=== PATIENT | male | born 1945 | race Caucasian/White ===

== ENCOUNTER 2016-11-04 06:12 | Day surgery (SDC) | payer MEDICARE, OTHER ==
[~2016-11-04] VITALS: Ht 177.8 cm; Wt 94.0 kg
[~2016-11-04 06:12] MED LIST: ASPI81CH37 CHEW; GLUC1CAP16; META0.52; MULT1TAB85 PO; VENTAER INH; VYTO10TA27 PO; [UNRECOGNIZED DRUG - CODE] PO
[2016-11-04] MEDS ORDERED: SODIUM CHLORID 0.9% 500 ML INJ 500 ML IV SCH (06:30)
[2016-11-04] MEDS ORDERED: LORazepam 1 MG TAB SL SCH (06:30)
[2016-11-04] MEDS ORDERED: LACTATED RINGER'S 1000 ML IV PRN (06:45)
[2016-11-04] MEDS ORDERED: INSULIN HUMAN REGULAR 1,000 UNITS/10 ML VIAL SQ PRN (06:45)
[2016-11-04] MEDS ORDERED: METOPROLOL TARTRATE 25 MG TAB PO PRN (06:45)
[2016-11-04] MEDS ORDERED: POVIDONE IODINE 5% (ANTISEPSIS KIT) 4 APPLICATIONS EACH NARE PRN (06:45)
[2016-11-04] MEDS ORDERED: SODIUM CHLORID 0.9% 500 ML IV PRN (06:45)
[2016-11-04] MEDS ORDERED: CHLORHEXIDINE GLUCONATE 2 % 1 PACK (2 CLOTHS) TOPICAL PRN (06:45)
[2016-11-04] MEDS ORDERED: fentaNYL CITRATE 250 MCG/5 ML AMP ONE (06:55)
[2016-11-04] MEDS ORDERED: HEPARIN-D5W INJ 250 ML ONE (06:55)
[2016-11-04] MEDS ORDERED: MIDAZOLAM HCL 2 MG/2 ML VIAL ONE (06:55)
[2016-11-04] MEDS ORDERED: ISOPROTERENOL HCL 1 MG/5 ML AMP ONE (06:55)
[2016-11-04] MEDS ORDERED: CETI10CA3 PO (06:56)
[2016-11-04] MEDS ORDERED: FAMOTIDINE 20 MG/2 ML VIAL ONE (06:56)
[2016-11-04] MEDS ORDERED: APIX5TAB PO (06:56)
[2016-11-04] MEDS ORDERED: ATEN25TA PO (06:56)
[2016-11-04 07:04] VITALS: BP 131/95; PULSE 86; RESP 16; O2SAT 97
[2016-11-04 07:30] LABS: AUTOMATED NEUTROPHIL # 5.6 TH/MM3 (1.8-7.7); BASOPHIL # 0.2 TH/MM3 (0-0.2); BASOPHIL % 1.9 % (0.0-2.0); EOSINOPHIL # 0.4 TH/MM3 (0-0.4); EOSINOPHIL % 4.3 % (0.0-4.0); HEMATOCRIT 42.3 % (39.0-51.0); HEMO FLAGS DIFF FINAL; LYMPH % 26.3 % (9.0-44.0); LYMPHOCYTE # 2.5 TH/MM3 (1.0-4.8); MEAN CELL VOLUME 93.1 FL (80.0-100.0); MEAN CORPUSCULAR HEMOGLOBIN 29.9 PG (27.0-34.0); MEAN CORPUSCULAR HGB CONC 32.1 % (32.0-36.0); MONO % 8.9 % (0.0-8.0); NEUT % 58.6 % (16.0-70.0); PLATELET COUNT 177 TH/MM3 (150-450); RED BLOOD COUNT 4.55 MIL/MM3 (4.50-5.90); RED CELL DISTRIBUTION WIDTH 13.8 % (11.6-17.2); WHITE BLOOD COUNT 9.6 TH/MM3 (4.0-11.0)
[2016-11-04 07:35] LABS: APTT (PATIENT) 26.1 SEC (24.3-30.1); INTERNATIONAL NORMALIZED RATIO 1.1 RATIO; PROTHROMBIN TIME - PATIENT 11.8 SEC (9.8-11.6)
[2016-11-04 07:50] LABS: BICARBONATE 27.4 MEQ/L (21.0-32.0); POTASSIUM 4.1 MEQ/L (3.5-5.1)
--- NOTE | 2016-11-04 16:49 | EKG ---
Date Performed: 11/04/2016 Time Performed: 07:23:44 PTAGE: 71 years EKG: Probable normal Sinus rhythm Nonspecific ST and T wave abnormalities Low QRS voltages in precordial leads Abnormal ECG PREVIOUS TRACING : 05/05/2011 12.59 Compared to prior tracing no significant change DOCTOR: Mike Diana Interpretating Date/Time 11/04/2016 16:48:00
--- NOTE | 2016-11-09 13:47 | CATHPROC ---
[facility] HIS Report Study Information Study Number Admission Scheduled Start Study Start 1026-17 11/09/2016 11/09/2016 Nov 09 2016 9:22AM Referring Institution Admit Source Facility Department 1 Other [facility] - Director Clinical Research Physician and Clinical Staff Initial Catalina Olivo Formulation Technician Kishan Bhatia,RT(R) Formulation Technician Carly Webber,[employer] INVESTIGATOR TECH2 Other Anesthesia, APPOINTMENT MANAGER Recorder Elidia Ray,RN Recorder Agata Kirkland,BSRN Scrub Junie Phillips,RT(R) TECH2 Procedures Performed Procedure Location (Site) Vessel Name Ablation Procedure ICE CATHETER INSERT RA Atruim RF Ablation LT. ATRIUM LT. ATRIUM RF Ablation RA Atruim Equipment Time Government Affairs Researcher Description Size Mfg Part Number Used/Scraped NEEDLE, TRANSSEPTAL NRG 98 10:46 [facility] [id number] Used C1 BIOSENSE MURPHY CATHETER, CELSIUS DS, 8MM, F [id number] 13:04 FR 7 Used INC. TYPE QUAD *[id number] [employer]/ EP 10:46 KIT, TRANSDUCER / AFIB [id number] Used PACER COVER, TRANSDUCER CABLE 10:46 [employer] 612-113 Used ACUNAV 10:46 CORDIS/PACER SHEATH, FR10 BARBARA 11CM FR 10 [id number] Used 10:46 CORDIS/PACER SHEATH, FR9 BARBARA 11CM FR 9 [id number] Used [id number] 10:46 [employer] INDUSTRIES PACK, CCL CUSTOM * Used *[id number] 10:46 [employer] PACER DYER, LIMB * 2530 Used [id number] 10:46 [employer] MEDICAL SHEATH, FR4.5 PRELUDE 11CM FR 4.5 Used [id number] 10:46 NAMIC TUBING, HIGH PRESSURE 48" 48" Used *[id number] 10:46 NAMIC TUBING, HIGH PRESSURE 48" 48" Used *[id number] 10:46 [employer] BLANKET,WARM AIR CCL * Used *[id number]- CATHETER, TACTICATH ABLAT BUNDLE 10:46 [employer] Used 65 BUNDLE *[id number]- BUNDLE [id number] CATHETER, FR7 OPTIMA SPIRAL 10:46 [employer] FR7 *[id number]- Used BUNDLE BUNDLE [id number] 10:46 [employer] CATHETER, JSN, QUAD BUNDLE FR 5 *[id number]- Used BUNDLE [id number] 10:46 [employer] CATHETER, JSN, QUAD BUNDLE FR 5 *[id number]- Used BUNDLE 10:46 [facility] ELECTRODE KIT, EMILY X SURFACE * [id number] Used [id number] SET, COOL POINT TUBING 10:46 [employer] *[id number]- Used BUNDLE BUNDLE 10:46 [employer] SHEATH, EPS, FR6 FAST CATH FR 6 [id number] Used 10:46 [facility] SHEATH, EPS, FR7 FAST CATH FR 7 [id number] Used 10:46 [facility] SHEATH, EPS, FR8 FAST CATH FR 8 [id number] Used SHEATH, FR8.5 STEERABLE SM 10:46 [facility] 71CM [id number] Used 71CM BUNDLE CATHETER, ACUNAV FR10 ICE [id number] 12:31 DARCIE FR 10 Used (DARCIE) *[id number] [facility] PAD, ELECTROSURGICAL 10:46 * [id number] Used SURGICAL GROUNDING (BLUE) History: Allergies Allergy Reaction No Known Allergies History: Risk Factors Dyslipidemia Yes Chronic Lung Disease Labs Hgb (g/dl) Hct (%) RBC (MIL/MM3) WBC (l/cumm) Platelets (thousands) 12.00-18.00 37.00-55.00 4.80-6.20 4.80-10.80 140.00-450.00 14.0 42 4.5 9.1 178 Glucose (mg/dl) BUN (mg/dl) Creatinine (mg/dl) BUN:Creatinine (1:x) 60.00-110.00 8.00-20.00 0.10-9.00 10.00-20.00 116 26 1.3 20 Na (meq/l) K (meq/l) 138.00-146.00 3.80-5.10 138 4.5 INR (PTT:PT) 0.50-2.00 1.1 Medication Medication Total Dose (Bolus/Oral) Medication Total Dosage/Unit 1% XYLOCAINE 40 mL HEPARIN 86942 units PROTAMINE 50 mg Medications (Bolus/Oral) Medication Time Given Dosage/Unit Administered By Reason 1% XYLOCAINE 11/09/2016 11:32:43 AM 20 mL Michael, Hanscy 20 mL 1% XYLOCAINE given in lab by Catalina Rodriguez in Left Groin via Subcutaneous. Ordered by Josh Rodriguez 1% XYLOCAINE 11/09/2016 11:36:24 AM 20 mL Catalina Rodriguez 20 mL 1% XYLOCAINE given in lab by Catalina Rodriguez in Right Groin via Subcutaneous. Ordered by Johana Rodriguez. HEPARIN 11/09/2016 11:44:45 AM 93109 units Anesthesia, APPOINTMENT MANAGER 75099 units HEPARIN given in lab by Anesthesia, APPOINTMENT MANAGER in Right Antecubital via Peripheral IV. Ordered by Catalina Rodriguez. HEPARIN 11/09/2016 11:59:16 AM 2000 units Anesthesia, APPOINTMENT MANAGER As per physicians v erbal order 2000 units HEPARIN given in lab by Anesthesia, APPOINTMENT MANAGER via Peripheral IV. Ordered by Catalina Rodriguez. Reas on: As per physicians verbal order. HEPARIN 11/09/2016 12:24:42 PM 3000 units Anesthesia, APPOINTMENT MANAGER As per physicians v erbal order 3000 units HEPARIN given in lab by Anesthesia, APPOINTMENT MANAGER via Peripheral IV. Ordered by Catalina Rodriguez. Reas on: As per physicians verbal order. HEPARIN 11/09/2016 12:40:55 PM 2000 units Anesthesia, APPOINTMENT MANAGER As per physicians v erbal order 2000 units HEPARIN given in lab by Anesthesia, APPOINTMENT MANAGER via Peripheral IV. Ordered by Catalina Rodriguez. Reas on: As per physicians verbal order. PROTAMINE 11/09/2016 1:39:53 PM 40 mg Anesthesia, APPOINTMENT MANAGER As per physicians fanny bal order 40 mg PROTAMINE given in lab by Anesthesia, APPOINTMENT MANAGER via Peripheral IV. Ordered by Catalina Rodriguez. Reason: As per physicians verbal order. PROTAMINE 11/09/2016 1:51:26 PM 10 mg Anesthesia, APPOINTMENT MANAGER As per physicians fanny bal order 10 mg PROTAMINE given in lab by Anesthesia, APPOINTMENT MANAGER via Peripheral IV. Ordered by Hanscy. Michael Reason: As per physicians verbal order. Medication (Drip) Medication Time Given Dosage/Unit Concentration/Unit Diluent (ml) Solution HEPARIN DRIP 11/09/2016 11:59:35 AM 1000 units/hr 22929 units 250 D5W 1000 units/hr HEPARIN DRIP given in lab by Anesthesia, APPOINTMENT MANAGER via Peripheral IV. Pump/Drip Flow = 10 ml /hr using [place] [address] units in 250 ml. Ordered by Catalina Rodriguez. Reason: As per physicians verbal order. ISUPREL 11/09/2016 1:16:57 PM 20 mcg/min 1 mg 250 NaCl .9 20 mcg/min ISUPREL given in lab by Anesthesia, APPOINTMENT MANAGER via Peripheral IV. Pump/Drip Flow = 300 ml/hr usi ng NaCl .9 with a concentration of 1 mg in 250 ml. Ordered by Catalina Rodriguez. Reason: As per physicians verbal order. LEVAQUIN 11/09/2016 10:56:00 AM 100 mL/hr 500 100 NaCl .9 100 mL/hr LEVAQUIN given in lab by Anesthesia, APPOINTMENT MANAGER via Peripheral IV. Pump/Drip Flow = 0 ml/hr using NaCl .9 with a concentration of 500 in 100 ml. Ordered by Catalina Rodriguez. Reason: As per physicians verbal order. for correa insertion Initial Case Assessment Cardiovascular HR Rhythm NIBP Chest Pain 78 sr 139/97 0 Edema Present Skin color Skin None Normal Warm Dry Circulatory - Right Pulses Dorsalis Pedis 1 Scale (0,1,2,3,4,d) Circulatory - Left Pulses Dorsalis Pedis 1 Scale (0,1,2,3,4,d) Circulatory - Lower Extremities Color Lower Right Color Lower Left Normal Normal Neurological State Oriented to time-place- Alert Moves all extremities person Respiration - General Respiration Rate SpO2 (%) (B/min) 20 98 Final Case Assessment Cardiovascular HR Rhythm NIBP Chest Pain 97 sr 120/74 0 Edema Present Skin color Skin None Normal Warm Dry Circulatory - Right Pulses Dorsalis Pedis 1 Scale (0,1,2,3,4,d) Circulatory - Left Pulses Dorsalis Pedis 1 Scale (0,1,2,3,4,d) Circulatory - Lower Extremities Color Lower Right Color Lower Left Normal Normal Neurological State Lethargic Moves all extremities Respiration - General Respiration Rate SpO2 (%) O2 (lpm) (B/min) 16 95 6 Chronological Log Time Study Chronological Log 10:16:46 Patient arrived via Bed. 10:16:47 Patient Name, D.O.B, / Armband Verified By R.N. 10:16:48 Consent signed by the physician and the patient and verified by the Director Clinical Research staff. 10:16:49 Pre-op and post- op instructions given; patient acknowledges understanding of instructions. Verbal Stimulation=~VERBAL~ Physical Stimulation=~PHYSICAL~ Airway=~AIRWAY~ Respiration=~RESPIR ATION~ 10:16:50 TOTAL=~TOTAL~. (0=absent, 1=limited, 2=present) 10:16:53 Patient has been NPO for More than 6Hrs. 10:16:54 Skin Breakdown- none per pt 10:16:55 Patient Warmer Placed on the Table. 10:16:56 Disposable Defibrillator Pads Placed On Patient. 10:17:00 Jose D Prominences Protected 10:17:01 A # 20 IV was noted in the Forearm (left). Grade = 0 0.9ns kvo 10:17:02 A # 20 IV was noted in the Forearm (right). Grade = 0 0.9ns kvo 10:19:00 History and physical on the chart or being dictated. Assessment: Initial Case, HR=78 BPM, Rhythm=sr, NRZH=081/97 mmhg, Chest Pain=0, Edema=None, Col or=Normal, Skin = Warm, Dry Right Pulses: Garfield Ped=1 Left Pulses: Garfield Ped=1 10:25:50 Lower Right Extremities: Color=Normal Lower Left Extremities: Color=Normal Neurological: State=Alert, Ox3, ASHBY Respiration: Resp=20 B/min, SpO2=98 % 10:39:51 Table restraints applied according to hospital policy 10:45:17 Anesthesia at bedside. Assumes care of patient. 10:49:32 Anesthesia present for intubation. 10:50:00 14 fr correa inserted w/o difficulty. Clear yellow urine obtained. 100 mL/hr LEVAQUIN given in lab by Anesthesia, APPOINTMENT MANAGER via Peripheral IV. Pump/Drip Flow = 0 ml/hr using NaCl .9 with 10:56:00 a concentration of 500 in 100 ml. Ordered by Catalina Rodriguez. Reason: As per physicians verbal or michael. for correa insertion 11:00:49 Bilateral groins prepped with 2% chlorhexidine, and with a 3 min. waiting time. 11:03:49 Reference ECG taken 11:05:00 paged 11:14:05 arrived. 11:25:18 MM out, SR in. 11:26:32 Immediate Presedation assesment performed by physician. Time Out. Correct patient, procedure, procedure equipment, site and side verified with physicia n present. Time 11:28:21 concurred by MD, individual staff and APPOINTMENT MANAGER. Time Out #2 - Consents verified, patient in correct position, all results are labled and displa yed, safety precautions 11:28:29 taken, antibiotics administered. Time out concurred by MD, individual staff and APPOINTMENT MANAGER in procedu re 11:28:32 Case Start 11:29:19 MARY completed at bedside by Dr. Rodriguez 11:32:43 20 mL 1% XYLOCAINE given in lab by Catalina Rodriguez in Left Groin via Subcutaneous. Ordered by Catalina Rodriguez. 11:33:40 Vascular access was obtained in the Fem Vein (left). 11:33:50 Vascular access was obtained in the Fem Vein (left). 11:33:51 Vascular access was obtained in the Fem Vein (left). 11:34:03 Vascular access was obtained in the Fem Art (left). 11:34:33 A SHEATH, FR4.5 PRELUDE 11CM FR 4.5 was advanced into the Fem Art (right) using the Percuta neous technique. 11:35:03 A SHEATH, EPS, FR6 FAST CATH FR 6 was advanced into the Fem Vein (left) using the Percutane ous technique. 11:35:21 A SHEATH, EPS, FR7 FAST CATH FR 7 was advanced into the Fem Vein (left) using the Percutane ous technique. 11:35:39 A SHEATH, FR10 BARBARA 11CM FR 10 was advanced into the Fem Vein (left) using the Percutaneo us technique. 11:36:24 20 mL 1% XYLOCAINE given in lab by Catalina Rodriguez in Right Groin via Subcutaneous. Ordered b Catalina Love. 11:36:45 Vascular access was obtained in the Fem Vein (right). 11:36:54 A SHEATH, EPS, FR8 FAST CATH FR 8 was advanced into the Fem Vein (right) using the Percutan eous technique. A CATHETER, JSN, QUAD BUNDLE FR 5 was advanced vis Fem Vein (left) and placed in the CS. Placem ent was visually 11:37:26 confirmed under fluoroscopy. A CATHETER, JSN, QUAD BUNDLE FR 5 was advanced vis Fem Vein (left) and placed in the HIS. Place ment was 11:37:52 visually confirmed under fluoroscopy. 11:40:30 CATHETER, ACUNAV FR10 ICE (DARCIE) FR 10 Was Postioned. A SHEATH, FR8.5 STEERABLE SM 71CM BUNDLE 71CM was exchanged in the Fem Vein (right). This was n ecessary in 11:41:54 order to accomodate a larger catheter. A CATHETER, FR7 OPTIMA SPIRAL BUNDLE FR7 was advanced to the right atrium and passed through th e septal wall 11:42:00 to the left atrium. 76608 units HEPARIN given in lab by Anesthesia, APPOINTMENT MANAGER in Right Antecubital via Peripheral IV. Or dered by Michael, 11:44:45 Catalina. 11:48:33 Mapping in progress. 11:54:18 Activated Clotting Time Drawn 11:55:37 SR out, MM in. 11:58:31 ACT (Normal Range 90-180) = 306 2000 units HEPARIN given in lab by Anesthesia, APPOINTMENT MANAGER via Peripheral IV. Ordered by Catalina Rodriguez . Reason: As per 11:59:16 physicians verbal order. 1000 units/hr HEPARIN DRIP given in lab by Anesthesia, APPOINTMENT MANAGER via Peripheral IV. Pump/Drip Flow = 10 ml/hr using 11:59:35 D5[place] [address] units in 250 ml. Ordered by Catalina Rodriguez. Reason: As per malathi piedra verbal order. 12:06:24 Mapping complete. Catheter was removed A CATHETER, TACTICATH ABLAT 65 BUNDLE was advanced vis Fem Vein (right) and placed in the LA. P lacement was 12:06:42 visually confirmed under fluoroscopy. 12:07:14 RF Ablation of the LT. ATRIUM with a CATHETER, TACTICATH ABLAT 65 BUNDLE. 12:10:59 Activated Clotting Time Drawn 12:22:58 ACT (Normal Range 90-180) = 316 3000 units HEPARIN given in lab by Anesthesia, APPOINTMENT MANAGER via Peripheral IV. Ordered by Catalina Rodriguez . Reason: As per 12:24:42 physicians verbal order. 12:33:43 Activated Clotting Time Drawn 12:40:41 ACT (Normal Range 90-180) = 340 2000 units HEPARIN given in lab by Anesthesia, APPOINTMENT MANAGER via Peripheral IV. Ordered by Catalina Rodriguez . Reason: As per 12:40:55 physicians verbal order. 12:49:00 Activated Clotting Time Drawn 12:56:53 ACT (Normal Range 90-180) = 344 13:00:29 Ablation Catheter was removed A CATHETER, AYAH DS, 8MM, F TYPE QUAD FR 7 was advanced vis Fem Ve[facility] (right[facility] 13:04:26 Placement was visually confirmed under fluoroscopy. 13:05:42 RF Ablation of the RA with a CATHETER, AYAH DS, 8MM, F TYPE QUAD FR 7. 20 mcg/min ISUPREL given in lab by Anesthesia, APPOINTMENT MANAGER via Peripheral IV. Pump/Drip Flow = 300 ml/ hr using NaCl .9 13:16:57 with a concentration of 1 mg in 250 ml. Ordered by Catalina Rodriguez. Reason: As per physicians fanny bal order. 13:26:46 isuprel discontinued 13:29:17 Catheters removed without difficulty. A SHEATH, FR9 BARBARA 11CM FR 9 was exchanged in the Fem Vein (right). This was necessary in ord er to achieve 13:29:40 vascular hemostasis. 13:30:58 PACU called. Spoke to Junie 13:31:00 Bedside Report will be given. 13:31:05 Ablation procedure performed: AFIB. AF/AFlttr Abl 13:31:30 EP Procedure was performed. 13:31:55 Sheath(s) left in place, sutured, 0.9ns kvo connected and will be removed in Holding Area 13:34:34 Sterile dressings applied to sites 40 mg PROTAMINE given in lab by Anesthesia, APPOINTMENT MANAGER via Peripheral IV. Ordered by Catalina Rodriguez. R thiago: As per 13:39:53 physicians verbal order. 13:45:17 No case complications noted. 13:45:18 Cine recording checked. Assessment: Final Case, HR=97 BPM, Rhythm=sr, KFXE=468/74 mmhg, Chest Pain=0, Edema=None, Aurora r=Normal, Skin = Warm, Dry Right Pulses: Garfield Ped=1 Left Pulses: Garfield Ped=1 13:45:27 Lower Right Extremities: Color=Normal Lower Left Extremities: Color=Normal Neurological: State=Lethargic, ASHBY Respiration: Resp=16 B/min, SpO2=95 %, O2=6 lpm 13:46:30 Defibrillator and ground pads removed. Skin intact. 13:47:58 Activated Clotting Time Drawn 13:50:40 Case End 13:51:19 ACT (Normal Range 90-180) = 198 10 mg PROTAMINE given in lab by Anesthesia, APPOINTMENT MANAGER via Peripheral IV. Ordered by Catalina Rodriguez. Reason: As per 13:51:26 physicians verbal order. 13:55:33 Patient moved to stretcher End Study - Contrast Media Used In Study Contrast Total Opened (mL) Total Used (mL) Total Wasted (mL) Unspecified 0 0 0 End Study - Maximum Contrast Load Max Contrast Load (mL) 365.0 End Study - Radiation Exposure Fluoro Time (minutes) 5.6 End Study - Patient Disposition Complications Transferred To Interventional Outcome No Telemetry Bed successful
== END 2016-11-04 12:20 | disposition home or self-care (01) ==
LOC: HDOC 06:12 → HDIC 06:13 → HDOC 12:20
PROVIDERS: ATTEND Internal Medicine Interventional Cardiology
DX: Z53.8 Procedure and treatment not carried out for other reasons (principal); R00.2 Palpitations; E78.5 Hyperlipidemia, unspecified; E66.9 Obesity, unspecified; Z68.29 Body mass index [BMI] 29.0-29.9, adult; Z87.891 Personal history of nicotine dependence; I25.10 Atherosclerotic heart disease of native coronary artery without angina pectoris; Z79.01 Long term (current) use of anticoagulants
CPT/HCPCS: 80048; 85025; 85610; 85730; 86850; 86900; 86901; 93005; G0463; J1644; J2250; J3010; 99211

== ENCOUNTER 2016-11-09 07:16 | Day surgery (SDC) | payer MEDICARE, OTHER ==
[~2016-11-09] VITALS: Ht 177.8 cm; Wt 95.0 kg
[2016-11-09] VITALS (8 sets, daily range): BP systolic 111–122; BP diastolic 77–90; PULSE 75–87; RESP 16–20; TEMP 97.3–98.4; O2SAT 94–97
[~2016-11-09 07:16] MED LIST changes: +APIX5TAB PO; -ASPI81CH37 CHEW; +ATEN25TA PO; +CETI10CA3 PO; -META0.52
[2016-11-09] MEDS ORDERED: POVIDONE IODINE 5% (ANTISEPSIS KIT) 4 APPLICATIONS EACH NARE PRN (08:00)
[2016-11-09] MEDS ORDERED: LACTATED RINGER'S 1000 ML IV PRN (08:00)
[2016-11-09] MEDS ORDERED: SODIUM CHLORID 0.9% 500 ML IV PRN (08:00)
[2016-11-09] MEDS ORDERED: LORazepam 1 MG TAB SL SCH (08:00)
[2016-11-09] MEDS ORDERED: METOPROLOL TARTRATE 25 MG TAB PO PRN (08:00)
[2016-11-09] MEDS ORDERED: SODIUM CHLORID 0.9% 500 ML INJ 500 ML IV SCH (08:00)
[2016-11-09] MEDS ORDERED: CHLORHEXIDINE GLUCONATE 2 % 1 PACK (2 CLOTHS) TOPICAL PRN (08:00)
[2016-11-09] MEDS ORDERED: INSULIN HUMAN REGULAR 1,000 UNITS/10 ML VIAL SQ PRN (08:00)
[2016-11-09] MEDS ORDERED: VITA500T4 PO (08:03)
[2016-11-09] MEDS ORDERED: MULT1TAB46 (08:03)
[2016-11-09] MEDS ORDERED: TRIFLEX (08:03)
[2016-11-09] MEDS ORDERED: FLUT50SP EACH NARE (08:03)
[2016-11-09 08:06] LABS: AUTOMATED NEUTROPHIL # 4.9 TH/MM3 (1.8-7.7); BASOPHIL # 0.2 TH/MM3 (0-0.2); EOSINOPHIL # 0.4 TH/MM3 (0-0.4); EOSINOPHIL % 4.7 % (0.0-4.0); HEMATOCRIT 42.3 % (39.0-51.0); HEMO FLAGS DIFF FINAL; LYMPH % 30.7 % (9.0-44.0); LYMPHOCYTE # 2.8 TH/MM3 (1.0-4.8); MEAN CORPUSCULAR HEMOGLOBIN 30.1 PG (27.0-34.0); MEAN CORPUSCULAR HGB CONC 33.1 % (32.0-36.0); MONO % 8.8 % (0.0-8.0); NEUT % 53.8 % (16.0-70.0); PLATELET COUNT 178 TH/MM3 (150-450); RED BLOOD COUNT 4.65 MIL/MM3 (4.50-5.90); RED CELL DISTRIBUTION WIDTH 14.1 % (11.6-17.2); WHITE BLOOD COUNT 9.1 TH/MM3 (4.0-11.0)
[2016-11-09 08:15] LABS: APTT (PATIENT) 26.1 SEC (24.3-30.1); INTERNATIONAL NORMALIZED RATIO 1.1 RATIO
[2016-11-09 08:33] LABS: BICARBONATE 25.7 MEQ/L (21.0-32.0); POTASSIUM 4.5 MEQ/L (3.5-5.1)
[2016-11-09] MEDS ORDERED: SODIUM CHLORID 0.9% 500 ML BAG IV ONE (10:16)
[2016-11-09] MEDS ORDERED: PROPOFOL 200 MG/20 ML AMP IV ONE (10:16)
[2016-11-09] MEDS ORDERED: HEPARIN-NS/PF INJ 500 ML ONE (10:34)
[2016-11-09] MEDS ORDERED: LEVOFLOXACIN 500 MG PREMIX INJ 100 ML IV ONE (10:36)
[2016-11-09] MEDS ORDERED: HEPARIN-D5W INJ 250 ML ONE (10:49)
[2016-11-09] MEDS ORDERED: MIDAZOLAM HCL 2 MG/2 ML VIAL ONE (10:49)
[2016-11-09] MEDS ORDERED: HEPARIN SODIUM - IV 10,000 UNITS/10 ML VIAL ONE (10:49)
[2016-11-09] MEDS ORDERED: ISOPROTERENOL HCL 1 MG/5 ML AMP ONE (10:50)
[2016-11-09] MEDS ORDERED: PROTAMINE SULFATE 50 MG/5 ML VIAL ONE (10:50)
[2016-11-09] MEDS ORDERED: DO NOT ADM ANY ANTICOAGULANT DRUGS PRN (14:00)
[2016-11-09] MEDS ORDERED: LIDOCAINE HCL 1% 50 ML VIAL INFIL PRN (14:15)
[2016-11-09] MEDS ORDERED: ATROPINE SULFATE 1 MG/ML VIAL IV PRN (14:15)
[2016-11-09] MEDS ORDERED: SODIUM CHLOR 0.9% 250 ML INJ 250 ML IV PRN (14:15)
[2016-11-09] MEDS ORDERED: METOCLOPRAMIDE HCL 10 MG/2 ML VIAL IV PRN (14:15)
[2016-11-09] MEDS ORDERED: oxyCODONE/ACETAMINOPHEN 5 MG/325 MG TAB PO PRN ×2 (14:15)
[2016-11-09] MEDS ORDERED: ONDANSETRON HCL 4 MG/2 ML VIAL IV PRN (14:15)
[2016-11-09] MEDS ORDERED: LORazepam 2 MG/ML VIAL IV PRN (14:15)
--- NOTE | 2016-11-09 14:15 | PD.CARD ---
Atrial Fibrillation Ablation PROCEDURE DATE: November 09, 2016 PROCEDURES PERFORMED: 1. Electrophysiology study on Isuprel infusion 2. CS cannulation 3. 3-D mapping 4. Transseptal approach 5. Right and left heart catheterization 6. Intracardiac echo 7. Radiofrequency ablation of atrial fibrillation 8. Pulmonary vein isolation 9. Posterior wall ablation 10. Mitral line creation 11. Left atrial tachycardia ablation 12. Anterior wall ablation 13. Atrial flutter ablation. INDICATIONS FOR THE PROCEDURE Mr. Coley is a 71-year-old male with atrial fibrillation, atrial flutter referred for electrophysiology study and ablation. The patient is symptomatic and on anticoagulation. The risks, the nature and the benefits of the procedure were clearly stated to him. The risks include pneumothorax, cardiac perforation, stroke, need for open heart surgery and even . The patient understood and agreed to proceed. DESCRIPTION OF THE PROCEDURE IN DETAIL After written informed consent was obtained prior to esophageal echocardiogram, the patient was kept on the table where he was prepped and draped in the usual sterile fashion. Conscious sedation was initiated and maintained throughout the procedure by the anesthesiologist. Once sedation was verified, the right and left inguinal areas were anesthetized with 2% Xylocaine. Using modified Seldinger technique, the left femoral vein was cannulated on three occasions, three guidewires were advanced. Over the wire a 6, 7 and a 10-Indonesian Hemaquet were advanced. Then the left femoral artery was cannulated on one occasion, one guidewire was advanced. Over the wire a 4-Indonesian Hemaquet was advanced. Then the right femoral vein was cannulated on one occasion, one guidewire was advanced. Over the wire a 8-Indonesian Hemaquet was advanced. Then under fluoroscopic guidance through the 6 and 7-Indonesian Hemaquet, two 5-Indonesian Rita curved quadripolar electrophysiology catheters were advanced and placed around the His as well as coronary sinus. Basic interval was measured. The patient was in atrial fibrillation. Through the 10-Indonesian Hemaquet, a Cordis Goins AcuNav intracardiac echo catheter was advanced and placed at the right atrium. Multiple view was obtained. There is no pericardial effusion. Pulmonary vein was seen, atrial septal was visualized. Then the 8-Indonesian Hemaquet in the right femoral vein was exchanged for Agilis transseptal sheath that was placed all the way to the superior vena cava. Through the sheath a Jacque needle was advanced, then the sheath, the dilator and the needle were progressed until foci engaged. Once engaged, the needle was advanced. RF was delivered for 2 seconds. I was able to cross into the left atrium. Once the needle crossed, the dilator was advanced. Once the dilator crossed, the sheath was advanced. Once the sheath crossed, the dilator and the needle were removed. At this point I did flood the system and fluid movement was seen in the left atrium the indicates the sheath is in good position. The patient already received 10,000 units of heparin. The goal is to keep an ACT around 350 during ablation. Then through the sheath a [facility] 20 pulse circumferential catheter was advanced. Using [employer] endocardial solution mapping system, a two-dimensional configuration of the left atrium was obtained. Points were taken at the left superior and inferior veins, right superior and inferior veins, mitral valve, and appendages. Then through the sheath a [facility]. [facility] TactiCath 65cm 3.5mm irrigated tipped mapping and radiofrequency ablation catheter was advanced. Esophageal probe was placed temperature monitoring during ablation. When it increased to 0.5 degrees Celsius above baseline, I moved to a different area of the atrium. First I did isolate the left superior and inferior vein. I did make a big mohegan around the veins. Posterior was ablated. A mitral line was isolated. Patient was in left atrial tachycardia. Then the right superior and inferior veins were isolated. I did remap the atrium. Early activation of the tachyarrhythmia was near the right superior vein. It was ablated. Activation changed. I did remap again. This time activation coming from the right atrium. I decided to map the right atrium. Flutter line was created using an 8 mm catheter from Cordis Goins. During the isolation of the coronary sinus, patient converted into sinus rhythm. is There is no significant signal in the atrium. At that point I did advance the circumferential catheter again into the vein. There was no signal into the vein , pacing from the vein showed no conduction to the atrium. Isuprel infusion was initiated at 20 mcg for over 10 minutes. No tachyarrhythmia was induced, post Isuprel no tachyarrhythmia was induced. At that point the procedure was complete. All catheters were removed, atrial septal sheath was exchanged for 9- Indonesian Hemaquet, intracardiac echo showed no pericardial effusion. There is still good flow in the pulmonary vein. The patient is going to be transferred to the recovery room. No incident report. The patient tolerated the procedure. Blood loss was minimal. FINDINGS 1. Electrocardiogram: At baseline the patient was in atrial fibrillation, post procedure the patient was in sinus rhythm. 2. Basic interval: Base cycle length was around 540. Post ablation she was around 980 milliseconds. AH at 80 and HV at 52 milliseconds. 3. Tachyarrhythmia: Atrial fibrillation was mapped and ablated. Left atrial tachycardia, atrial flutter was ablated. The ablation was successful. CONCLUSION Successful electrophysiology study, mapping, radiofrequency ablation of atrial fibrillation, left atrial tachycardia, atrial flutter, pulmonary vein isolation , posterior ablation, mitral line creation. COMMENTS AND RECOMMENDATIONS The patient is going to be transferred to the telemetry unit. Will be observed and when stable can be discharged home. Catalina Rodriguez MD November 09, 2016 14:15
[2016-11-09] MEDS ORDERED: BACITRACIN OINT 0.9 GM PKT TOP ONE (15:00)
[2016-11-09] MEDS ORDERED: PILL SPLITTER OTHER PRN (15:15)
[2016-11-09] MEDS ORDERED: ALBUTEROL SULFATE 90 MCG/ACT HFA 18 GM INHALER INH PRN (15:15)
[2016-11-09] MEDS ORDERED: PRAVASTATIN SOD 20 MG TAB PO SCH (21:00)
[2016-11-09] MEDS ORDERED: NON-FORMULARY DRUG (Ezetimibe-Simvastatin (Vytorin) 1 TAB) PO SCH (21:00)
[2016-11-09] MEDS ORDERED: EZETIMIBE 10 MG TAB PO SCH (21:00)
[2016-11-09] MEDS: APIXABAN 5 MG TABLET PO SCH (21:12)
[2016-11-10] VITALS (9 sets, daily range): BP systolic 112–117; BP diastolic 78–79; PULSE 74–86; RESP 16–18; TEMP 97.6; O2SAT 93–97
[2016-11-10 06:43] LABS: APTT (PATIENT) 25.9 SEC (24.3-30.1); INTERNATIONAL NORMALIZED RATIO 1.1 RATIO; PROTHROMBIN TIME - PATIENT 12.3 SEC (9.8-11.6)
[2016-11-10] MEDS ORDERED: METO25TA6 PO (08:14)
--- NOTE | 2016-11-10 08:19 | PD.CARD.PN ---
Subjective Subjective Remarks Feels okay. Objective Medications Current Medications Medications (Trade) Dose Ordered Sig/Jj Route Start Time Stop Time Status Last Admin Sodium Chloride 500 ml @ 30 mls/hr [id number] IV 11/09/16 08:00 11/09/16 08:00 Lactated Ringer's 1,000 ml @ 30 mls/hr Q24H PRN IV 11/09/16 08:00 11/12/16 07:59 (NS 500 ml Inj) 500 ml @ 30 mls/hr [id number] PRN IV 11/09/16 08:00 11/12/16 07:59 Miscellaneous Information ALL NURSING DEPARTME... UNSCH PRN .XX 11/09/16 14:00 11/10/16 13:59 (Percocet 5-325 Mg) 1 tab Q4H PRN PO 11/09/16 14:15 (Percocet 5-325 Mg) 2 tab Q4H PRN PO 11/09/16 14:15 (Ativan Inj) 0.5 mg UNSCH PRN IV 11/09/16 14:15 11/10/16 14:14 (Atropine Inj) 0.5 mg UNSCH PRN IV 11/09/16 14:15 (Reglan Inj) 10 mg Q4H PRN IV 11/09/16 14:15 (Zofran Inj) 4 mg Q4H PRN IV 11/09/16 14:15 (Xylocaine 1% Inj (50 ml)) 10 ml UNSCH PRN INFIL 11/09/16 14:15 11/10/16 14:14 (Ventolin Hfa Inh) 1 puff Q4H PRN INH 11/09/16 15:15 (Eliquis) 5 mg BID PO 11/09/16 21:00 11/09/16 21:12 (Vitamin B12) 500 mcg DAILY PO 11/10/16 09:00 (ZyrTEC) 10 mg DAILY PO 11/10/16 09:00 (Pill Splitter) 1 ea UNSCH PRN OTHER 11/09/16 15:15 (Zetia) 10 mg HS PO 11/09/16 21:00 11/09/16 21:12 (Pravachol) 20 mg HS PO 11/09/16 21:00 11/09/16 21:12 Vital Signs / I&O Vital Signs Date Time Temp Pulse Resp B/P Pulse Ox O2 Delivery O2 Flow Rate FiO2 11/10/16 06:00 76 11/10/16 05:00 76 11/10/16 04:00 76 11/10/16 03:00 83 11/10/16 03:00 97.6 76 16 112/78 93 11/10/16 02:00 74 11/10/16 01:00 76 11/10/16 00:00 86 11/09/16 23:00 80 11/09/16 23:00 97.6 79 18 113/78 94 11/09/16 22:00 80 11/09/16 21:00 82 11/09/16 20:00 84 11/09/16 19:00 97.3 78 16 122/81 97 11/09/16 19:00 80 11/09/16 18:00 75 11/09/16 17:00 98.4 77 20 111/77 97 11/09/16 17:00 78 11/09/16 16:15 75 16 107/72 96 Nasal Cannula 2 11/09/16 14:45 114 16 121/78 94 Nasal Cannula 3 11/09/16 14:30 116 16 127/79 94 Nasal Cannula 3 11/09/16 14:15 119 16 127/80 92 Nasal Cannula 3 11/09/16 14:00 97.4 121 16 127/84 95 Nasal Cannula 3 I/O 11/09/16 11/09/16 11/09/16 11/10/16 11/10/16 11/10/16 07:00 15:00 23:00 07:00 15:00 23:00 Intake Total 500 ml 810 ml 720 ml Output Total 25 ml 500 ml 350 ml Balance 475 ml 310 ml 370 ml Intake Oral 510 ml 720 ml IV Total 300 ml Other 500 ml Output Urine Total 500 ml 350 ml Estimated Blood Loss 25 ml Other 0 ml Physical Exam GENERAL: Well-nourished, well-developed patient. SKIN: Warm and dry. Groin sites soft without swelling, bleeding or bruising. HEAD: Normocephalic. EYES: No scleral icterus. No injection or drainage. NECK: Supple, trachea midline. No JVD or lymphadenopathy. CARDIOVASCULAR: Regular rate and rhythm without murmurs, gallops, or rubs. RESPIRATORY: Breath sounds equal bilaterally. No accessory muscle use. GASTROINTESTINAL: Abdomen soft, non-tender, nondistended. EXTREMITIES: No cyanosis, or edema. NEUROLOGICAL: Awake, alert, and oriented x 3. Non-focal. Laboratory Laboratory Tests Test 11/10/16 05:40 Prothrombin Time 12.3 SEC Prothromb Time International 1.1 RATIO Ratio Activated Partial 25.9 SEC Thromboplast Time Assessment and Plan Problem List: (1) Atrial fibrillation Assessment and Plan: Symptomatic, nonresponsive to medications, normal sinus rhythm status post ablation. Continue eliquis (2) S/P ablation of atrial fibrillation Assessment and Plan: Groin sites stable. NSR on telemetry. Continue Eliquis. Discharge home, follow up in [address] Rodriguez per my discussion with him. Problem Qualifiers (1) Atrial fibrillation: Qualified Code: I48.0 - Paroxysmal atrial fibrillation Anna Degroot November 10, 2016 08:19
[2016-11-10] MEDS: APIXABAN 5 MG TABLET PO SCH (08:44)
--- NOTE | 2016-11-10 08:55 | EKG ---
Date Performed: 11/10/2016 Time Performed: 00:19:10 PTAGE: 71 years EKG: Sinus rhythm Extensive ST-T changes may be due to myocardial ischemia Abnormal ECG PREVIOUS TRACING : 11/09/2016 14.32 DOCTOR: Kirill Chris Interpretating Date/Time 11/10/2016 08:53:42
[2016-11-10] MEDS ORDERED: CYANOCOBALAMIN 1,000 MCG TAB PO SCH (09:00)
[2016-11-10] MEDS ORDERED: CETIRIZINE HCL 10 MG TAB PO SCH (09:00)
--- NOTE | 2016-11-10 09:35 | EKG ---
Date Performed: 11/09/2016 Time Performed: 14:32:00 PTAGE: 71 years EKG: SINUS TACHYCARDIA PROBABLE INFERIOR MYOCARDIAL INFARCTION , OF INDETERMINATE AGE MODERATE T -WAVE ABNORMALITY, CONSIDER ANTEROLATERAL ISCHEMIA ABNORMAL ECG PREVIOUS TRACING : 11/09/2016 08.05 DOCTOR: Kirill Chris Interpretating Date/Time 11/10/2016 09:34:36
--- NOTE | 2016-11-10 09:45 | EKG ---
Date Performed: 11/09/2016 Time Performed: 08:05:00 PTAGE: 71 years EKG: Sinus rhythm with first degree av block Extensive ST-T changes are nonspecific Abnormal ECG PREVIOUS TRACING : 11/09/2016 08.03 DOCTOR: Kirill Chris Interpretating Date/Time 11/10/2016 09:44:27
== END 2016-11-10 09:10 | disposition home or self-care (01) ==
LOC: HDIC 07:16 → HDOC 07:16 → HCIS 16:20 → HDOC 11-10 09:10
PROVIDERS: ATTEND Internal Medicine Interventional Cardiology
DX: I48.0 Paroxysmal atrial fibrillation (principal); I48.92 Unspecified atrial flutter; G45.1 Carotid artery syndrome (hemispheric); J44.9 Chronic obstructive pulmonary disease, unspecified; R73.03 Prediabetes; R00.2 Palpitations; R06.09 Other forms of dyspnea; E66.9 Obesity, unspecified; Z68.30 Body mass index [BMI] 30.0-30.9, adult; Z79.01 Long term (current) use of anticoagulants
CPT/HCPCS: 80048; 85002; 85025; 85610; 85730; 86850; 86900; 86901; 93005; 93312; 93320; 93325; 93613; 93623; 93656; 93657; 93662; C1730; C1731; C1732; C1759; C1766; C2630; J1644; J1956; J2250; J2720; J3010; J7040

== ENCOUNTER 2017-08-07 09:28 | Observation (INO) | payer MEDICARE, OTHER ==
[~2017-08-07] VITALS: Ht 180.3 cm; Wt 95.0 kg
[~2017-08-07 09:28] MED LIST changes: -ATEN25TA PO; +FLUT50SP EACH NARE; -GLUC1CAP16; +METO1TAB42 PO; +MULT1TAB46; -MULT1TAB85 PO; +TRIFLEX; +VITA500T4 PO; -[UNRECOGNIZED DRUG - CODE] PO
[2017-08-07 09:31] VITALS: BP 154/115; PULSE 77; RESP 18; TEMP 98.4; O2SAT 99
[2017-08-07 09:41] VITALS: BP 170/85; PULSE 77; RESP 20; O2SAT 96
[2017-08-07] MEDS ORDERED: VYTO10TA8 PO (09:48)
[2017-08-07] MEDS ORDERED: ASPI-516 CHEW (09:49)
[2017-08-07] MEDS ORDERED: COQ-30CA2 (09:49)
--- NOTE | 2017-08-07 09:50 | PD ---
HPI Chief Complaint: Chest Pain Time Seen by Provider: 09:36 Travel History International Travel<30 days: No Contact w/Intl Traveler<30days: No Traveled to known affect area: No History of Present Illness HPI 71yo M with PMH of afib s/p ablation 11/2016, HLD here with left shoulder pain for 2 days. Said it does not feel like his usual shoulder pain and radiates to left upper back and left chest last night. Associated with diaphoresis. Denies any trauma, fever, cough, sob, n/v, abdominal pain, focal weakness. Said his usual shoulder pain is worst with movement and this was not. Said it is heavy feeling. Pt took aspirin full strength today. 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 Former cig smoker. PFSH Past Medical History Hx Anticoagulant Therapy: Yes (asa 81mg) Arthritis: Yes Atrial Fibrillation: Yes Cancer: Yes (lymphoma ) Cardiovascular Problems: Yes (A-FIB, ABLATION) High Cholesterol: Yes Chemotherapy: Yes Chest Pain: No Diabetes: No Diminished Hearing: No Endocrine: No Gastrointestinal Disorders: No GERD: Yes Glaucoma: No Genitourinary: No Hepatitis: No Hiatal Hernia: No Hypertension: Yes Immune Disorder: No Implanted Vascular Access Dvce: No Musculoskeletal: Yes Neurologic: No Psychiatric: No Reproductive: No Respiratory: No Integumentary: No Immunizations Current: Yes Radiation Therapy: Yes (TO TREAT ABDOMINAL CANCER) Thyroid Disease: No Past Surgical History Abdominal Surgery: Yes (appendectomy) Appendectomy: Yes Cardiac Surgery: Yes (ablation 2016) Neurologic Surgery: Yes (Cage L4- L5 on left) Oral Surgery: Yes (t and a) Thoracic Surgery: No Tonsillectomy: Yes (ADNOIDS) Other Surgery: Yes Social History Alcohol Use: Yes (1 drink daily) Tobacco Use: No Substance Use: No Allergies-Medications (Allergen,Severity, Reaction): Coded Allergies: No Known Allergies (Unverified , 11/09/16) Reported Meds & Prescriptions Reported Meds & Active Scripts Active Metoprolol Succinate ER 24 HR (Metoprolol Succinate) 25 Mg Tab 25 Mg PO QHS Reported Coq-10 (Coenzyme Q10 (Ubidecarenone)) 30 Mg Cap Aspirin 81 Mg Chew 81 Mg CHEW DAILY Vytorin (Ezetimibe-Simvastatin) 10-20 Mg Tab 1 Tab PO HS Vitamin B-12 (Cyanocobalamin) 500 Mcg Tab 500 Mcg PO DAILY Multi Vitamin Daily (Multiple Vitamin) 1 Tab Tab Fluticasone Nasal [place] 50 Mcg/Act Naspr 50 Mcg EACH NARE BID 50 mcg/spray Review of Systems Except as stated in HPI: all other systems reviewed are Neg Physical Exam Narrative GENERAL: 71yo M not in distress. SKIN: Focused skin assessment warm/dry. HEAD: Atraumatic. Normocephalic. EYES: Pupils equal and round. No scleral icterus. No injection or drainage. ENT: No nasal bleeding or discharge. Mucous membranes pink and moist. NECK: Trachea midline. No JVD. CARDIOVASCULAR: Regular rate and rhythm. No murmur appreciated. RESPIRATORY: No accessory muscle use. Clear to auscultation. Breath sounds equal bilaterally. GASTROINTESTINAL: Abdomen soft, non-tender, nondistended. MUSCULOSKELETAL: No obvious deformities. No clubbing. No cyanosis. No edema. Left shoulder: No erythema or edema. FROM left shoulder. Distal pulses intact. sensation intact. +TTP left scapula. No ttp left chest wall. NEUROLOGICAL: Awake and alert. No obvious cranial nerve deficits. Motor grossly within normal limits. Normal speech. PSYCHIATRIC: Appropriate mood and affect; insight and judgment normal. Data Data Last Documented VS Vital Signs Date Time Temp Pulse Resp B/P (MAP) Pulse Ox O2 Delivery O2 Flow Rate FiO2 08/07/17 09:41 86 18 97 08/07/17 09:41 170/85 (113) 08/07/17 09:31 98.4 Orders Orders Electrocardiogram (08/07/17 ) Basic Metabolic Panel (Bmp) (08/07/17 09:46) Complete Blood Count With Diff (08/07/17 09:46) Prothrombin Time / Inr (Pt) (08/07/17 09:46) Act Partial Throm Time (Ptt) (08/07/17 09:46) Troponin I (08/07/17 09:46) Chest, Single Ap (08/07/17 09:46) Nitroglycerin Sl (Nitrostat Sl) (08/07/17 10:00) Admit Order (Ed Use Only) (08/07/17 11:44) Labs Laboratory Tests Test 08/07/17 09:50 White Blood Count 7.9 TH/MM3 Red Blood Count 4.60 MIL/MM3 Hemoglobin 14.9 GM/DL Hematocrit 43.7 % Mean Corpuscular Volume 95.1 FL Mean Corpuscular Hemoglobin 32.4 PG Mean Corpuscular Hemoglobin Concent 34.1 % Red Cell Distribution Width 13.2 % Platelet Count 189 TH/MM3 Mean Platelet Volume 7.5 FL Neutrophils (%) (Auto) 63.2 % Lymphocytes (%) (Auto) 23.3 % Monocytes (%) (Auto) 7.2 % Eosinophils (%) (Auto) 5.0 % Basophils (%) (Auto) 1.3 % Neutrophils # (Auto) 5.0 TH/MM3 Lymphocytes # (Auto) 1.8 TH/MM3 Monocytes # (Auto) 0.6 TH/MM3 Eosinophils # (Auto) 0.4 TH/MM3 Basophils # (Auto) 0.1 TH/MM3 CBC Comment DIFF FINAL Differential Comment Prothrombin Time 10.9 SEC Prothromb Time International Ratio 1.1 RATIO Activated Partial Thromboplast Time 26.0 SEC Blood Urea Nitrogen 21 MG/DL Creatinine 1.01 MG/DL Random Glucose 106 MG/DL Calcium Level 8.9 MG/DL Sodium Level 137 MEQ/L Potassium Level 4.4 MEQ/L Chloride Level 104 MEQ/L Carbon Dioxide Level 27.6 MEQ/L Anion Gap 5 MEQ/L Estimat Glomerular Filtration Rate 73 ML/MIN Troponin I LESS THAN 0.02 NG/ML MDM Medical Decision Making Medical Screen Exam Complete: Yes Emergency Medical Condition: Yes Interpretation(s) EKG: NSR 66bpm. Normal axis. TWI III. T wave flattening. Differential Diagnosis ACS vs. musculoskeletal pain Narrative Course 71yo F with PMH of HLD, former cig smoking, afib s/p ablation here with left shoulder pain radiating to left chest. Atypical chest pain but will do cardiac work up. Labs reviewed, no leukocytosis. Troponin negative. CXR negative. Pt given aspirin at home. Pt given sublingual nitro since chest pain was about 5 out of 10. Said it did help. Will admit to chest pain center for serial EKG and cardiac enzymes. Diagnosis Primary Impression: Chest pain Qualified Codes: R07.9 - Chest pain, unspecified Admitting Information Admitting Physician Requests: Valencia Biggs DO Aug 07, 2017 09:50
[2017-08-07 10:01] LABS: BASOPHIL # 0.1 TH/MM3 (0-0.2); BASOPHIL % 1.3 % (0.0-2.0); EOSINOPHIL # 0.4 TH/MM3 (0-0.4); HEMATOCRIT 43.7 % (39.0-51.0); HEMOGLOBIN 14.9 GM/DL (13.0-17.0); LYMPH % 23.3 % (9.0-44.0); LYMPHOCYTE # 1.8 TH/MM3 (1.0-4.8); MEAN CELL VOLUME 95.1 FL (80.0-100.0); MEAN CORPUSCULAR HEMOGLOBIN 32.4 PG (27.0-34.0); MEAN CORPUSCULAR HGB CONC 34.1 % (32.0-36.0); MEAN PLATELET VOLUME 7.5 FL (7.0-11.0); MONO % 7.2 % (0.0-8.0); MONOCYTE # 0.6 TH/MM3 (0-0.9); NEUT % 63.2 % (16.0-70.0); PLATELET COUNT 189 TH/MM3 (150-450); RED CELL DISTRIBUTION WIDTH 13.2 % (11.6-17.2); WHITE BLOOD COUNT 7.9 TH/MM3 (4.0-11.0)
[2017-08-07] MEDS: NITROGLYCERIN 0.4 MG SL 25 TABS/BTL SL SCH ×3 (10:10→10:25)
[2017-08-07 10:12] LABS: INTERNATIONAL NORMALIZED RATIO 1.1 RATIO; PROTHROMBIN TIME - PATIENT 10.9 SEC (9.8-11.6)
[2017-08-07 10:18] LABS: BICARBONATE 27.6 MEQ/L (21.0-32.0); BLOOD UREA NITROGEN 21 MG/DL (7-18); CALCIUM 8.9 MG/DL (8.5-10.1); CHLORIDE 104 MEQ/L (98-107); CREATININE 1.01 MG/DL (0.60-1.30); GLOMERULAR FILTRATION RATE 73 ML/MIN (>89); GLUCOSE,RANDOM 106 MG/DL (74-106); SODIUM (NA) 137 MEQ/L (136-145)
[2017-08-07 10:21] LABS: TROPONIN I LESS THAN 0.02 NG/ML (0.02-0.05)
--- NOTE | 2017-08-07 10:40 | RADRPT ---
EXAM DATE/TIME: 08/07/2017 09:53 [facility] COMPARISON: CHEST SINGLE AP, June 09, 2014, 21:55. INDICATIONS : Left sided chest pain. MEDICAL HISTORY : Atrial fibrillation. SURGICAL HISTORY : Cardiac ablation, 11/2016. ENCOUNTER: Initial ACUITY: 3 days PAIN SCORE: 5/10 LOCATION: Left chest FINDINGS: A single view of the chest demonstrates the lungs to be symmetrically aerated without evidence of mas s, infiltrate or effusion. The cardiomediastinal contours are unremarkable. Osseous structures are intact. CONCLUSION: No acute disease. Amaury Santiago MD on August 07, 2017 at 10:39 Board Certified Radiologist. This report was verified electronically.
--- NOTE | 2017-08-07 11:27 | EKG ---
Date Performed: 08/07/2017 Time Performed: 09:47:14 PTAGE: 71 years EKG: Sinus rhythm NONSPECIFIC T-WAVE ABNORMALITY ABNORMAL ECG PREVIOUS TRACING : 11/10/2016 00.19 Compared to previous tracing, nonspecific lateral T wave ch anges have improved. DOCTOR: Francisco Winston Interpretating Date/Time 08/07/2017 11:26:03
[2017-08-07] MEDS ORDERED: ONDANSETRON HCL 4 MG/2 ML VIAL IV PUSH PRN (12:15)
[2017-08-07] MEDS ORDERED: ACETAMINOPHEN 500 MG CPLT PO PRN (12:15)
[2017-08-07] MEDS ORDERED: NITROGLYCERIN 0.4 MG SL 25 TABS/BTL SL PRN (12:15)
[2017-08-07] MEDS ORDERED: SODIUM CHLORIDE 0.9% FLUSH 10 ML FLUSH IV FLUSH PRN (12:15)
--- NOTE | 2017-08-07 13:55 | HHI.HP ---
HPI Primary Care Physician John Guzman MD Chief Complaint Chest pain and left shoulder pain History of Present Illness 71-year-old male with history of atrial fibrillation and hyperlipidemia presents to emergency room for further evaluation of left-sided chest and left shoulder pain. Onset 2 days ago. Location left upper chest. Characterized as a "dull, achy, solid pain." Severity moderate. Radiation to left scapula. Duration generally last a couple hours. Discomfort does not necessarily occur more than not, does not appear to be exertional. No known precipitating or relieving factors. Was awoken from sleep at 12:15 AM with reoccurrence of discomfort. Associated symptoms at that time included diaphoresis. Denied nausea, vomiting, or shortness of breath. He took 2 Advil and able to fall return to sleep. He decided after evangelical he will come to ER for further evaluation, as had been encouraging him to come to ER since yesterday. Currently he is chest pain-free. Reports pain subsided on way to emergency room. Review of Systems General: No fatigue,weakness, fever, chills, or recent illness change in appetite HEENT: No SCHULZ, no vision changes, no nasal congestion or drainage, no dysphasia CV: No CP, pressure, palpitations, intermittent leg pain, dizziness RESP: No SOB, cough, wheeze, hemoptysis, asthma GI: No nausea or vomiting, bowel changes, diarrhea, constipation, pain, distention, melena, blood in the stool. No change in appetite, no unintentional weight gain or weight loss : No dysuria, urgency, frequency, hematuria, or history of kidney stones EXT: No lower leg edema, no parathesias MS: No discomfort or change in ROM NEURO: No change in memory, dizziness, difficulty with balance, LOC, motor/ sensory deficits PSYCH: No anxiety, depression, suicidal ideation SKIN: No rashes, no concerning lesions Past Family Social History Allergies: Coded Allergies: No Known Allergies (Unverified , 11/09/16) Past Medical History Atrial fibrillation, hypokalemia, hypertension, heart murmur, GERD, stomach cancer Past Surgical History Bilateral hip surgery, multiple left shoulder surgeries Reported Medications Reported Meds & Active Scripts Active Metoprolol Succinate ER 24 HR (Metoprolol Succinate) 25 Mg Tab 25 Mg PO QHS Reported Coq-10 (Coenzyme Q10 (Ubidecarenone)) 30 Mg Cap Aspirin 81 Mg Chew 81 Mg CHEW DAILY Vytorin (Ezetimibe-Simvastatin) 10-20 Mg Tab 1 Tab PO HS Vitamin B-12 (Cyanocobalamin) 500 Mcg Tab 500 Mcg PO DAILY Multi Vitamin Daily (Multiple Vitamin) 1 Tab Tab Fluticasone Nasal [place] 50 Mcg/Act Naspr 50 Mcg EACH NARE BID 50 mcg/spray Active Ordered Medications Current Medications Medications (Trade) Dose Ordered Sig/Jj Route Start Time Stop Time Status Last Admin (NS Flush) 2 ml UNSCH PRN IV FLUSH 08/07/17 12:15 (NS Flush) 2 ml BID IV FLUSH 08/07/17 21:00 (Tylenol) 500 mg Q4H PRN PO 08/07/17 12:15 (Zofran Inj) 4 mg Q6H PRN IV PUSH 08/07/17 12:15 (Nitrostat Sl) 0.4 mg Q5M PRN SL 08/07/17 12:15 (Aspirin) 325 mg DAILY PO 08/08/17 09:00 Family History Noncontributory for early onset cardiovascular Social History Known hypertension and hyperlipidemia. No known coronary artery disease or diabetes. Former smoker quitting 30 years ago. Endorses daily alcohol use. . Retired. 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 Remote cardiac testing while in the [place]. Denies ever having cardiac catheterization. Known heart murmur, recent echocardiogram. Cardiac ablation November 2016. Physical Exam Vital Signs Vital Signs Date Time Temp Pulse Resp B/P (MAP) Pulse Ox O2 Delivery O2 Flow Rate FiO2 08/07/17 09:41 86 18 97 08/07/17 09:41 77 20 170/85 (113) 96 08/07/17 09:31 98.4 77 18 154/115 (128) 99 Physical Exam GENERAL: Alert WN, WD, NAD, pleasant HEAD: NC, AT EYES: Sclera clear, conjunctiva without injection, pupils equal and round ENT: Mucous membranes pink and moist, no nasal discharge or bleeding NECK: Supple, no masses, trachea midline CV: RRR, without murmur, rub, gallop, no JVD, S1-S2 no S3-S4. No carotid bruits RESP: Clear lungs throughout bilateral, no crackles, wheeze, rhonchi, symmetrical chest rise, nonlabored, able to speak in full sentences ABD: Soft, NT, ND, no masses, positive bowel tones BACK: No CVAT, no scoliosis EXT: Pulses +24, no dependent edema MS: Normal tone 4 extremities, nontender, no obvious deformities, full range of motion NEURO: CN II through CN XII grossly intact, motor strength 5/5, gait WNL PSYCH: A+O 3, pleasant affect, appropriate speech, appropriate mood and affect , insight and judgment SKIN: Normal turgor, normal texture, no lesions, no rashes, brisk cap refill, even hair distribution Laboratory Laboratory Tests Test 08/07/17 09:50 08/07/17 13:00 White Blood Count 7.9 Red Blood Count 4.60 Hemoglobin 14.9 Hematocrit 43.7 Mean Corpuscular Volume 95.1 Mean Corpuscular Hemoglobin 32.4 Mean Corpuscular Hemoglobin Concent 34.1 Red Cell Distribution Width 13.2 Platelet Count 189 Mean Platelet Volume 7.5 Neutrophils (%) (Auto) 63.2 Lymphocytes (%) (Auto) 23.3 Monocytes (%) (Auto) 7.2 Eosinophils (%) (Auto) 5.0 Basophils (%) (Auto) 1.3 Neutrophils # (Auto) 5.0 Lymphocytes # (Auto) 1.8 Monocytes # (Auto) 0.6 Eosinophils # (Auto) 0.4 Basophils # (Auto) 0.1 CBC Comment DIFF FINAL Differential Comment Prothrombin Time 10.9 Prothromb Time International Ratio 1.1 Activated Partial Thromboplast Time 26.0 Blood Urea Nitrogen 21 Creatinine 1.01 Random Glucose 106 Calcium Level 8.9 Sodium Level 137 Potassium Level 4.4 Chloride Level 104 Carbon Dioxide Level 27.6 Anion Gap 5 Estimat Glomerular Filtration Rate 73 Troponin I LESS THAN 0.02 Result Diagram: 08/07/17 0950 08/07/17 0950 Imaging Chest x-ray read by radiologist as no acute disease. Will obtain repeat chest x- ray, appears elevated right diaphragm. Course EKG Normal sinus rhythm, nonspecific T-wave changes Caprini VTE Risk Assessment Caprini VTE Risk Assessment: Mod/High Risk (score >= 2) Caprini Risk Assessment Model Point Value = 1 Point Value = 2 Point Value = 3 Point Value = 5 Age 41-60 Minor surgery BMI > 25 kg/m2 Swollen legs Varicose veins or History of unexplained or recurrent spontaneous Oral contraceptives or hormone replacement Sepsis (< 1 month) Serious lung disease, including pneumonia (< 1 month) Abnormal pulmonary function Acute myocardial infarction Congestive heart failure (< 1 month) History of inflammatory bowel disease Medical patient at bed rest Age 61-74 Arthroscopic surgery Major open surgery (> 45 min) Laparoscopic surgery (> 45 min) Malignancy Confined to bed (> 72 hours) Immobilizing plaster cast Central venous access Age >= 75 History of VTE Family history of VTE Factor V Leiden Prothrombin [id number] Lupus anticoagulant Anticardiolipin antibodies Elevated serum homocysteine Heparin-induced thrombocytopenia Other congenital or acquired thrombophilia Stroke (< 1 month) Elective arthroplasty Hip, pelvis, or leg fracture Acute spinal cord injury (< 1 month) Prophylaxis Regimen Total Risk Factor Score Risk Level Prophylaxis Regimen 0-1 Low Early ambulation 2 Moderate Order ONE of the following: *Sequential Compression Device (SCD) *Heparin 5000 units SQ BID 3-4 Higher Order ONE of the following medications: *Heparin 5000 units SQ TID *Enoxaparin/Lovenox 40 mg SQ daily (WT < 150 kg, CrCl > 30 mL/min) *Enoxaparin/Lovenox 30 mg SQ daily (WT < 150 kg, CrCl > 10-29 mL/min) *Enoxaparin/Lovenox 30 mg SQ BID (WT < 150 kg, CrCl > 30 mL/min) AND/OR *Sequential Compression Device (SCD) 5 or more Highest Order ONE of the following medications: *Heparin 5000 units SQ TID (Preferred with Epidurals) *Enoxaparin/Lovenox 40 mg SQ daily (WT < 150 kg, CrCl > 30 mL/min) *Enoxaparin/Lovenox 30 mg SQ daily (WT < 150 kg, CrCl > 10-29 mL/min) *Enoxaparin/Lovenox 30 mg SQ BID (WT < 150 kg, CrCl > 30 mL/min) AND *Sequential Compression Device (SCD) Assessment and Plan Assessment and Plan #1 Atypical chest pain-admitted chest pain center. Begin ruling out ACS with 3 sets of cardiac enzymes and EKG. Will be seen and evaluated by Dr. Tom De Anda. Discussed likelihood of completing nuclear stress test later this afternoon. If unremarkable, plans will be to discharge home with follow-up with his primary care provider as well as Dr. Mchugh. Patient and patient's , whom is at bedside, both agreeable to plan of care. Repeat chest x-ray to evaluate diaphragmatic motion. Repeat chest x-ray mild right diaphragm elevation, compared with imaging in 2014 , appears unchanged. Does not recall ever being told of findings previously. Urszula Mccord Aug 07, 2017 13:55
[2017-08-07 13:59] LABS: TROPONIN I 0.02 NG/ML (0.02-0.05)
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
--- NOTE | 2017-08-07 15:45 | RADRPT ---
EXAM DATE/TIME: 08/07/2017 15:27 [facility] COMPARISON: CHEST SINGLE AP, August 07, 2017, 9:53. INDICATIONS : Evaluate Right Diaphragm movement MEDICAL HISTORY : Atrial Fib SURGICAL HISTORY : Cardiac Ablation 11/2016 ENCOUNTER: Subsequent ACUITY: 3 days PAIN SCORE: 5/10 LOCATION: Left chest FINDINGS: PA and lateral views of the chest demonstrate the lungs to be symmetrically aerated without evidence of mass, infiltrate or effusion. Mild elevation of the right hemidiaphragm. The cardiomediastinal co ntours are unremarkable. Osseous structures are intact. CONCLUSION: No acute disease. No significant change has occurred. Aaron Cerna MD on August 07, 2017 at 15:44 Board Certified Radiologist. This report was verified electronically.
[2017-08-07 16:27] VITALS: BP 147/85; PULSE 64; RESP 20; TEMP 95.7; O2SAT 95
[2017-08-07] MEDS ORDERED: REGADENOSON INJ 0.4 MG/5 ML SYR ONE (16:27)
--- NOTE | 2017-08-07 17:14 | RADRPT ---
EXAM DATE/TIME: 08/07/2017 16:18 [facility] COMPARISON: No previous studies available for comparison. INDICATIONS : Susbternal chest pain radiating to left shoulder with diaphoresis. Angina. DOSE: 25.4 mCi Tc99m Myoview at stress. 8.5 mCi Tc99m Myoview at rest. 0.4 mg Lexiscan STRESS SYMPTOMS: Dyspnea. EJECTION FRACTION: 68% MEDICAL HISTORY : Hypertension. Gastroesophageal reflux disease. Atrial fibrillation and stomach cancer. SURGICAL HISTORY : Bilateral hip and left shoulder. ENCOUNTER: Initial ACUITY: 1 day PAIN SCALE: 4/10 LOCATION: Substernal chest TECHNIQUE: The patient underwent pharmacologic stress with infusion of prescribed dose. Continuous ECG tracing was monitored during stress. Gated SPECT imaging was performed after stress and conventional SPECT i maging was performed at rest. The examination was performed on a SPECT/CT scanner, both attenuation and non-corrected datasets were reviewed. FINDINGS: DISTRIBUTION: The maximum perfused segment at stress is in the septal wall. PERFUSION STUDY: The pattern of perfusion at stress is within normal limits. GATED STUDY: There is intact wall motion and thickening without hypokinetic or dyskinetic segments. CONCLUSION: Unremarkable myocardial perfusion examination RISK CATEGORY: Low Aaron Cerna MD on August 07, 2017 at 17:12 Board Certified Radiologist. This report was verified electronically.
--- NOTE | 2017-08-07 17:25 | HHI.DCPOC ---
Discharge Care Plan Diagnosis: (1) Musculoskeletal chest pain Goals to Promote Your Health * To prevent worsening of your condition and complications * To maintain your health at the optimal level Directions to Meet Your Goals Take your medications as prescribed Follow your dietary instruction Follow activity as directed Keep your appointments as scheduled Take your immunizations and boosters as scheduled If your symptoms worsen call your PCP, if no PCP go to Urgent Care Center or Emergency Room Smoking is Dangerous to Your Health. Avoid second hand smoke Call the 24-hour hour crisis hotline for domestic abuse at Urszula Mccord Aug 07, 2017 17:25
[2017-08-07] MEDS ORDERED: SODIUM CHLORIDE 0.9% FLUSH 10 ML FLUSH IV FLUSH SCH (21:00)
[2017-08-08] MEDS ORDERED: ASPIRIN 325 MG TAB PO SCH (09:00)
--- NOTE | 2017-08-08 16:36 | EKG ---
Date Performed: 08/07/2017 Time Performed: 12:50:08 PTAGE: 71 years EKG: Sinus rhythm WITH FIRST DEGREE AV BLOCK NONSPECIFIC T-WAVE ABNORMALITY ABNORMAL ECG PREVIOUS TRACING : 08/07/2017 09.47 Since previous tracing, no significant change noted DOCTOR: Mao Cerda Interpretating Date/Time 08/08/2017 16:35:36
--- NOTE | 2017-08-08 16:38 | TR ---
Date Performed: 08/07/2017 Time Performed: 16:36:25 DOCTOR: Mao Cerda DRUG LIST: CLINICAL HISTORY: CHEST PAIN REASON FOR TEST: CHEST PAIN REASON FOR ENDING: OBSERVATION: CONCLUSION: COMMENTS: Lexiscan stress test was performed under standard four minute protocol. Radionuclide was injected one minute prior to ending the test. No electrocardiographic abormalities were present t o suggest ischemia. Nuclear imaging and interpretation are pending.
== END 2017-08-07 18:14 | disposition home or self-care (01) ==
LOC: NEPE 09:28 → NEDA 11:46 → NEPFCDU 14:23
PROVIDERS: ADMIT Internal Medicine Interventional Cardiology; ATTEND Internal Medicine Interventional Cardiology
DX: R07.89 Other chest pain (principal); I48.91 Unspecified atrial fibrillation; E78.5 Hyperlipidemia, unspecified; R61 Generalized hyperhidrosis; Z87.891 Personal history of nicotine dependence; Z79.82 Long term (current) use of aspirin; M19.90 Unspecified osteoarthritis, unspecified site; Z85.72 Personal history of non-Hodgkin lymphomas; E78.00 Pure hypercholesterolemia, unspecified; K21.9 Gastro-esophageal reflux disease without esophagitis; I10 Essential (primary) hypertension; Z79.899 Other long term (current) drug therapy; R01.1 Cardiac murmur, unspecified; E87.6 Hypokalemia; Z86.79 Personal history of other diseases of the circulatory system; J98.6 Disorders of diaphragm; Z85.028 Personal history of other malignant neoplasm of stomach; R94.31 Abnormal electrocardiogram [ECG] [EKG]; I44.0 Atrioventricular block, first degree
CPT/HCPCS: 71045; 71046; 78452; 80048; 82550; 82552; 84484; 85025; 85610; 85730; 93005; 93017; 99285; A9502; G0378; J2785